=== PATIENT | male | born 1990 | race Two or more races ===

== ENCOUNTER 2025-04-15 18:11 | Emergency (ER) | payer OTHER ==
[~2025-04-15] VITALS: Ht 180.3 cm; Wt 94.5 kg
[2025-04-15 18:39] LABS: Hematocrit 43.2 % (41.0-53.0); Hemoglobin 14.4 g/dL (13.5-17.5); Mean Corpuscular Hemoglobin 28.2 pg (28.0-32.0); Mean Corpuscular Volume 84.6 fL (80.0-100.0); Nucleated Red Blood Cells % 0.3 %
[2025-04-15 18:42] LABS: Chloride 101 mmol/L (98-107); Potassium 4.0 mmol/L (3.5-5.1); Sodium 139 mmol/L (136-145)
[2025-04-15 18:43] LABS: Anion Gap 11 (5-15); Calcium 10.4 mg/dL (8.7-10.4); Carbon Dioxide 27 mmol/L (20-31)
[2025-04-15 18:48] LABS: BUN/Creatinine Ratio 9.0 (10.0-20.0); Blood Urea Nitrogen 11 mg/dL (9-23); Glucose 84 mg/dL (74-106)
--- NOTE | 2025-04-15 19:00 | DVH ---
CHEST RADIOGRAPH INDICATION: CP TECHNIQUE: Single frontal view of the chest was obtained COMPARISON: None FINDINGS: Lines and Tubes: None Lungs: No focal consolidation. Pleura: No effusion. No pneumothorax. Cardiomediastinal contours: Unremarkable Bones: No acute osseous abnormality. IMPRESSION: 1. No acute cardiopulmonary disease.
--- NOTE | 2025-04-15 20:05 | ED.PDOC ---
HPI Comments 34 year-old male presents to the ED with a chief complaint of L mid lateral chest wall pain for X2 years. Patient reports the pain as constant, non- radiating, with no known alleviating factors, There are no further complaints or modifying factors at this time. Chief Complaint: Chest Pain Time Seen by MD: 18:35 Reviewed Notes: Medications, Allergies Allergies: Coded Allergies: NO KNOWN ALLERGIES (Unverified , 04/15/25) Information Source: Patient Mode of Arrival: Ambulatory Severity: Moderate Timing: Other (Years ) Duration: Since onset Location: Chest (L) Past Medical History PAST MEDICAL HISTORY: Denies Surgical History: Denies all surgeries Family History Family History: Reviewed,noncontributory to illness, No family hx of Cancer, No family hx of DM, No family hx of Heart norah, No family hx of HTN, No family hx ofKidney norah, No family hx of Liver norah, No family hx of Lung norah, No family hx of Stroke Social History Smoker: Non-Smoker Alcohol: Denies ETOH Use Drugs: Denies Drug Use Lives In: Home Constitutional: denies: chills, diaphoresis, fatigue, fever, malaise, sweats, weakness, others EENTM: denies: blurred vision, double vision, ear bleeding, ear discharge, ear drainage, ear pain, ear ringing, eye pain, eye redness, hearing loss, mouth pain, mouth swelling, nasal discharge, nose bleeding, nose congestion, nose pain, photophobia, tearing, throat pain, throat swelling, voice changes, others Respiratory: denies: cough, hemoptysis, orthopnea, SOB at rest, shortness of breath, SOB with excertion, stridor, wheezing, others Cardiovascular: reports: chest pain; denies: dizzy spells, diaphoresis, Dyspnea on exertion, edema, irregular heart beat, left arm pain, lightheadedness, palpitations, PND, syncope, others Gastrointestinal: denies: abdomen distended, abdominal pain, blood streaked bowels, constipated, diarrhea, dysphagia, difficulty swallowing, hematemesis, melena, nausea, poor appetite, poor fluid intake, rectal bleeding, rectal pain, vomiting, others Genitourinary: denies: burning, dysuria, flank pain, frequency, hematuria, incontinence, penile discharge, penile sore, pain, testicle pain, testicle swelling, urgency, others Neurological: denies: dizziness, fainting, headache, left sided numbness, left sided weakness, numbness, paresthesia, pre-existing deficit, right sided numbness, right sided weakness, seizure, speech problems, tingling, tremors, weakness, others Musculoskeletal: reports: muscle pain; denies: back pain, gout, joint pain, joint swelling, muscle stiffness, neck pain, others Integumetry: denies: bruises, change in color, change in hair/nails, dryness, laceration, lesions, lumps, rash, wounds, others Allergic/Immunocompromised: denies: Difficulty Healing, Frequent Infections, Hives, Itching, others Hematologic/Lymphatic: denies: anemia, blood clots, easy bleeding, easy bruising, swollen glands, others Endocrine: denies: excessive hunger, excessive sweating, excessive thirst, excessive urination, flushing, intolerance to cold, intolerance to heat, unexplained weight gain, unexplained weight loss, others Psychiatric: denies: anxiety, bipolar disorder, depression, hopeless, panic disorder, schizophrenia, sleepless, suicidal, others All Other Systems: Reviewed and Negative Physical Exam General Appearance: No Apparent Distress, Normal HEENT: Normal ENT Inspection, Pharynx Normal, TMs Normal Neck: Full Range of Motion, Non-Tender, Normal, Normal Inspection Respiratory: Chest Non-Tender, Lungs Clear, No Accessory Muscle Use, No Respiratory Distress, Normal Breath Sounds Cardiovascular: No Edema, No JVD, No Murmur, No Gallop, Normal Peripheral Pulses, Regular Rate/Rhythm Breast Exam: Deferred Gastrointestinal: No Organomegaly, Non Tender, No Pulsatile Mass, Normal Bowel Sounds, Soft Genitalia: Deferred Pelvic: Deferred Rectal: Deferred Extremities: No calf tenderness, Normal capillary refill, Normal inspection, Normal range of motion, Non-tender, No pedal edema Musculoskeletal : Location: Left (Left lateral chest wall with tenderness. No crepitus, no bruising, no lesions, no redness.) Apperance: Normal Neurologic: Alert, tailer off II-XII nml as Tested, No Motor Deficits, Normal Affect, Normal Mood, No Sensory Deficits Cerebellar Function: Normal Reflexes: Normal Skin: Dry, Normal Color, Warm Lymphatic: No Adenopathy Was a procedure done? Was a procedure done?: No CP Differential Dx Differential Diagnosis: A-fib, Angina, Anxiety / Panic Attack Differential Diagnosis: Angina, Chest Wall Pain, Gastritis, Pneumonia X-Ray, Labs, Meds, VS Vital Signs Date Time Temp Pulse Resp B/P (MAP) Pulse Ox O2 Delivery O2 Flow Rate FiO2 04/15/25 19:18 78 04/15/25 18:16 86 04/15/25 18:14 98.3 83 20 141/84 98 98.3 Lab Test 04/15/25 19:13 04/15/25 18:19 Range/Units Troponin I High Sensitivity < 3 L < 3 L </=54 ng/L White Blood Count 7.9 4.4-10.8 10^3/uL Red Blood Count 5.10 4.5-5.90 10^6/uL Hemoglobin 14.4 13.5-17.5 g/dL Hematocrit 43.2 41.0-53.0 % Mean Corpuscular Volume 84.6 80.0-100.0 fL Mean Corpuscular Hemoglobin 28.2 28.0-32.0 pg Mean Corpuscular Hemoglobin Concent 33.4 32.0-36.0 g/dL Red Cell Distribution Width 13.4 11.8-14.3 % Platelet Count 290 140-450 10^3/uL Mean Platelet Volume 8.7 6.9-10.8 fL Neutrophils (%) (Auto) 51.8 37.0-80.0 % Lymphocytes (%) (Auto) 39.5 10.0-50.0 % Monocytes (%) (Auto) 6.3 0.0-12.0 % Eosinophils (%) (Auto) 1.4 0.0-7.0 % Basophils (%) (Auto) 1.0 0.0-2.0 % Neutrophils # (Auto) 4.1 1.6-8.6 10 ^3/uL Lymphocytes # (Auto) 3.1 0.4-5.4 10 ^3/uL Monocytes # (Auto) 0.5 0-1.3 10 ^3/uL Eosinophils # (Auto) 0.1 0-0.8 10 ^3/uL Basophils # (Auto) 0.1 0-0.2 10 ^3/uL Nucleated Red Blood Cells 0.3 % Sodium Level 139 136-145 mmol/L Potassium Level 4.0 3.5-5.1 mmol/L Chloride Level 101 98-107 mmol/L Carbon Dioxide Level 27 20-31 mmol/L Anion Gap 11 5-15 Blood Urea Nitrogen 11 9-23 mg/dL Creatinine 1.22 0.700-1.30 mg/dL Glomerular Filtration Rate Calc 79 >90 mL/min BUN/Creatinine Ratio 9.0 L 10.0-20.0 Serum Glucose 84 74-106 mg/dL Calcium Level 10.4 8.7-10.4 mg/dL [address] [address] Ph: [phone] DIAGNOSTIC IMAGING Diagnostic Imaging Report : [id number] Signed PATIENT: JAMIE DUENAS ACCT: [id number] UNIT: [id number] : 1990 LOC: ER ROOM / BED: / AGE / SEX: 34 / M ADM STATUS: REG ER SERVICE 39 ORDERING PHYSICIAN: ISAAC FERNANDES MD PROCEDURE(s): CXRP - CHEST PORTABLE REASON: CP ORDER NUMBER(s): [id number], ACCESSION NUMBER(s): [id number] CHEST RADIOGRAPH INDICATION: CP TECHNIQUE: Single frontal view of the chest was obtained COMPARISON: None FINDINGS: Lines and Tubes: None Lungs: No focal consolidation. Pleura: No effusion. No pneumothorax. Cardiomediastinal contours: Unremarkable Bones: No acute osseous abnormality. IMPRESSION: 1. No acute cardiopulmonary disease. ATED BY: SHYAM STUART Jr., DO DICTATED DATE/TIME: 04/15/251857 SIGNED BY: SHYAM STUART Jr., DO SIGNED DATE/TIME: 04/15/251857 CC: X-Ray, Labs, Meds, VS Comment Previous history reviewed: N/A The following tests were ordered, and results were reviewed by me: CBC, CMP, Troponin Additional Information was gathered from interviewing the following independent historians: N/A I reviewed and agreed with the following test results read by other providers: N/A I discussed treatment and results with medical personnel and: patient Comprehensive systems review obtained and negative except for what is stated in the HPI. Time of 1ST Reevaluation: 20:24 Reevaluation 1ST: Unchanged Patient Education/Counseling: Diagnosis, Treatment Family Education/Counseling: No Family Present Comments This is a patient who has no cardiac risk factors, who has been having three years of left-sided chest wall pain. He has been seen by his primary doctor but has switched doctors of he is here for reassessment of the chest wall pain. Examination is unremarkable. EKGs unremarkable. Chest x-ray is unremarkable. Patient is stable for discharge. Prescribe him Motrin as needed for musculoskeletal chest wall pain. SEPSIS Sepsis Screen Date sepsis recognized/suspect: Apr 15, 2025 Time Sepsis recognized/suspect: 1813 Recent Procedure: No On Antibiotic Therapy: No Respiratory Rate >20: No Heart Rate >90: No Temp<36 C (96.8 F) or >38.3 C: No SBP <90 or MAP <65 mmHG: No New Acute Mental Status Change: No Is the patient on CPAP, BIPAP,: No Physician Orders Chest Portable (04/15/25 18:40) Electrocardigram (04/15/25 18:12) Electrocardigram (04/15/25 19:12) Electrocardigram (04/15/25 21:12) Vital Signs Date Time Temp Pulse Resp B/P (MAP) Pulse Ox O2 Delivery O2 Flow Rate FiO2 04/15/25 19:18 78 04/15/25 18:16 86 04/15/25 18:14 98.3 83 20 141/84 98 98.3 Laboratory Tests Test 04/15/25 18:19 White Blood Count 7.9 10^3/uL (4.4-10.8) Departure 1 Departure Time of Disposition: 20:08 Impression: Primary Impression: Chest wall pain Disposition: 01 HOME / SELF CARE / HOMELESS Condition: Good e-Prescriptions Ibuprofen Micronized (MOTRIN TABLET) 600 Mg Tb 600 MG PO TID PRN, #40 TAB *Black box warning-NSAIDS can increase risk of AL & hypertension, GI irritation, ulceration, bleed, perferation. Do not use post cardiac surgery. Use short duration/lowest effective dose. Prov: JACKIE THAYER MD 04/15/25 Discharged With: Self Critical Care Note Critical Care Time?: No Stability Stability form required: No Heart Score Heart Score: Heart Score Response (Comments) Value History Slightly Suspicious 0 EKG Normal 0 Age <45 0 Risk Factors No known risk factors 0 Troponin Normal limit 0 Total 0 I personally scribed for JACKIE THAYER MD ([facility]) on 04/15/25 at 20:05. Elect ronically submitted by Mattie Saucedo ([facility]). JACKIE THAYER MD Apr 15, 2025 20:05
[2025-04-15] MEDS ORDERED: IBU600T PO (20:09)
[2025-04-15 20:55] VITALS: BP 146/87; PULSE 77; RESP 14; TEMP 98.4; O2SAT 98
--- NOTE | 2025-04-16 12:07 | ECG ---
[facility] Test Date: 2025-04-15 Test Time: 19:18:46 Pat Name: JAMIE DUENAS Department: ED Room: Gender: M [employer]: STEVENSON : 1990 Requested By: ISAAC FERNANDES Order Number: [id number] Reading MD: Russell Guaman Measurements Intervals [place] Rate: 78 P: 31 [place]: 126 QRS: 40 QRSD: 96 T: 44 QT: 369 QTc: 421 Interpretive Statements Sinus rhythm ST elev, probable normal early repol pattern Electronically Signed On 04-16-2025 15:29:00 PST by Russell Guaman Please click the below link to view image of tracing.
--- NOTE | 2025-04-16 12:07 | ECG ---
[facility] Test Date: 2025-04-15 Test Time: 18:16:06 Pat Name: JAMIE DUENAS Department: ED Room: Gender: M Soaker: dr ESPINOZA: 1990 Requested By: ISAAC FERNANDES Order Number: [id number] Reading MD: Russell Guaman Measurements Intervals [place] Rate: 86 P: 47 NM: 117 QRS: 83 QRSD: 96 T: 23 QT: 350 QTc: 419 Interpretive Statements Sinus rhythm Borderline short NM interval ST elev, probable normal early repol pattern Electronically Signed On 04-16-2025 15:28:55 PST by Russell Guaman Please click the below link to view image of tracing.
== END 2025-04-15 21:02 | disposition home or self-care (01) ==
LOC: ER 18:11
DX: R07.89 Other chest pain (principal)
CPT/HCPCS: 36415; 71045; 80048; 84484; 85025; 93005